=== PATIENT | female | born 1985 | race Caucasian/White ===

== ENCOUNTER 2021-05-17 00:39 | Emergency (ER) | payer BC, MEDICAID ==
[2021-05-17] MEDS ORDERED: Acetaminophen/HYDROcodone 325-5 MG Tab PO ONE (01:16)
--- NOTE | 2021-05-17 01:43 | EDM.PDOC ---
ED HPI GENERAL MEDICAL PROBLEM - General Chief Complaint: General Stated Complaint: BODY ACHE Time Seen by Provider: 05/17/21 00:59 Source of Information: Reports: Patient History Limitations: Reports: No Limitations - History of Present Illness INITIAL COMMENTS - FREE TEXT/NARRATIVE: The patient presents with body aches, chills and a low grade temp. The patient says this all started this morning with neck pain and it has gotten worse and her joints and muscles all hurt. She is crying when I went into the room. She has chills and she had a temp of 99.9. She has no medical problems. She did not get immunized for COVID 19. She does not smoke. She denies a cough, sore throat, ear pain, chest pain, shortness of breath, abdominal pain, nausea or vomiting. Onset: Gradual Duration: Day(s): Location: Reports: Generalized Quality: Reports: Ache Severity: Severe Improves with: Reports: None Worsens with: Reports: None Associated Symptoms: Denies: Cough Generalized Pain Score (Numeric/FACES): 10 - Related Data Allergies Allergy/AdvReac Type Severity Reaction Status Date / Time codeine Allergy Hives Verified 05/17/21 01:03 Home Meds: Home Meds . [No Known Home Meds] 05/17/21 [History] Past Medical History - Past Health History Medical/Surgical History: Denies Medical/Surgical History Social & Family History - Tobacco Use Tobacco Use Status *Q: Never Tobacco User ED ROS GENERAL - Review of Systems Review Of Systems: See Below Constitutional: Reports: Fever, Chills HEENT: Reports: No Symptoms Respiratory: Reports: No Symptoms Cardiovascular: Reports: No Symptoms Endocrine: Reports: No Symptoms GI/Abdominal: Reports: No Symptoms : Reports: No Symptoms Musculoskeletal: Reports: Muscle Pain Skin: Reports: No Symptoms Neurological: Reports: No Symptoms ED EXAM, GENERAL - Physical Exam Exam: See Below Exam Limited By: No Limitations General Appearance: Alert, No Apparent Distress Ears: Normal External Exam Nose: Normal Inspection Head: Atraumatic, Normocephalic Neck: Normal Inspection Respiratory/Chest: No Respiratory Distress, Lungs Clear, Normal Breath Sounds Cardiovascular: Regular Rate, Rhythm, No Edema, No Murmur GI/Abdominal: Soft, Non-Tender, No Organomegaly, No Mass Back Exam: Normal Inspection Course - Vital Signs Last Recorded V/S: Last Vital Signs Temp 99.9 F 05/17/21 00:59 Pulse 82 05/17/21 00:59 Resp 18 05/17/21 00:59 BP 142/98 H 05/17/21 00:59 Pulse Ox 100 05/17/21 00:59 - Orders/Labs/Meds Labs: Laboratory Tests 05/17/21 Range/Units 01:00 SARS-CoV-2 RNA (SHANIQUE) Positive H (NEGATIVE) Meds: Medications Discontinued Medications Generic Name Dose Route Start Last Admin Trade Name Jensen PRN Reason Stop Dose Admin Hydrocodone Bitart/Acetaminophen 2 tab 05/17/21 01:16 05/17/21 01:24 Acetaminophen/Hydrocodone 325-5 Mg Tab PO 05/17/21 01:17 2 tab ONETIME ONE Administration - Re-Assessments/Exams Free Text/Narrative Re-Assessment/Exam: 05/17/21 01:43 She is COVID positive. 05/17/21 01:51 She does want the monoclonal antibodies. We have no more in stock in the ER. I will write and order for an outpatient dose. Departure - Departure Time of Disposition: 02:00 Disposition: Home, Self-Care 01 Condition: Good Clinical Impression: COVID-19 - Discharge Information *PRESCRIPTION DRUG MONITORING PROGRAM REVIEWED*: Not Applicable *COPY OF PRESCRIPTION DRUG MONITORING REPORT IN PATIENT HOWARD: Not Applicable Referrals: PCP,None [Primary Care Provider] - Gabriella Rojas MD [Physician] - 1 Week Forms: ED Department Discharge, ED Return to Work/School Form Additional Instructions: Drink plenty of fluids. Take tylenol or motrin for pain. If that does not help, try the hydrocodone. Try to lay on your stomach when laying around. That will help oxygenate more lung tissue. I have put in an order for the monoclonal antibodies. Someone will call you with a times to come get them. Please return if you are worse. Sepsis Event Note (ED) - Evaluation Sepsis Screening Result: No Definite Risk - Focused Exam Vital Signs: Vital Signs Temp Pulse Resp BP Pulse Ox 05/17/21 00:59 99.9 F 82 18 142/98 H 100
== END 2021-05-17 02:26 | disposition home or self-care (01) ==
LOC: JD.ED 00:39
DX: U07.1 COVID-19 (principal); Z88.5 Allergy status to narcotic agent
CPT/HCPCS: 87804; 99283; A9270-GY; U0002

== ENCOUNTER 2021-12-07 11:01 | Emergency (ER) | payer BC ==
[2021-12-07] MEDS ORDERED: Sodium Chloride 0.9% 1,000 ML IV ONE (11:37)
== END 2021-12-07 13:30 | disposition home or self-care (01) ==
LOC: JD.ED 11:01
DX: N93.8 Other specified abnormal uterine and vaginal bleeding (principal); Z88.5 Allergy status to narcotic agent; Z91.040 Latex allergy status; Z68.30 Body mass index [BMI] 30.0-30.9, adult
CPT/HCPCS: 36415; 80053; 81025; 85007; 85027; 99284; J7030

== ENCOUNTER 2022-01-23 19:29 | Emergency (ER) | payer BC ==
[2022-01-23] MEDS ORDERED: Sodium Chloride 0.9% 1,000 ML IV ONE (20:03)
[2022-01-23] MEDS ORDERED: Sodium Chloride 0.9% 250 ML IV SCH (21:15)
== END 2022-01-24 03:08 | disposition home or self-care (01) ==
LOC: JD.ED 19:29
DX: N93.8 Other specified abnormal uterine and vaginal bleeding (principal); E66.9 Obesity, unspecified; Z88.5 Allergy status to narcotic agent; Z91.040 Latex allergy status; Z86.16 Personal history of COVID-19; Z68.1 Body mass index [BMI] 19.9 or less, adult
CPT/HCPCS: 36415; 36430; 84703; 85027; 86850; 86900; 86901; 86922; 96360; 96361; 99284; A9270; J7030; J7050; P9016

== ENCOUNTER 2022-01-26 04:29 | Inpatient (IN) | payer BC ==
[~2022-01-26 04:29] MED LIST: Lidocaine 1%/Sod Bicarbonate in NS 8.4% 1 ML Syringe IDERM PRN; Sodium Chloride 0.9% 10 ML Syringe FLUSH PRN
[2022-01-26] MEDS: Lactated Ringers 1,000 ML IV SCH ×4 (05:29→16:10)
[2022-01-26] MEDS ORDERED: Sodium Chloride 0.9% 1,000 ML IV SCH (05:30)
[2022-01-26] MEDS ORDERED: Sodium Chloride 0.9% 1,000 ML ONE (05:48)
[2022-01-26] MEDS: Sodium Chloride 0.9% 10 ML Syringe FLUSH SCH ×2 (06:08→10:26)
[2022-01-26] MEDS ORDERED: fentaNYL 250 MCG/5 ML SDV ONE (10:12)
[2022-01-26] MEDS ORDERED: Midazolam 1 MG/ML 2 ML SDV ONE (10:12)
[2022-01-26] MEDS ORDERED: Propofol 200 MG/20 ML SDV ONE (10:12)
[2022-01-26] MEDS ORDERED: Rocuronium 50 MG/5 ML Vial ONE ×2 (10:13→12:53)
[2022-01-26] MEDS ORDERED: Lidocaine 1% 5 ML VIAL ONE (10:13)
[2022-01-26] MEDS ORDERED: diphenhydrAMINE 50 MG/ML SDV ONE (10:13)
[2022-01-26] MEDS ORDERED: Ondansetron 4 MG/2 ML SDV ONE (10:13)
[2022-01-26] MEDS ORDERED: Dexamethasone 4 MG/ML 5 ML MDV ONE (10:13)
[2022-01-26] MEDS ORDERED: ceFAZolin 2 GM Vial ONE ×2 (10:13→11:52)
[2022-01-26] MEDS ORDERED: Calcium Chloride 10% 1 GM/10 ML Syringe ONE (11:57)
[2022-01-26] MEDS ORDERED: Lidocaine 1% with EPINEPHrine 1:100,000 20 ML MDV ONE (12:00)
[2022-01-26] MEDS ORDERED: Bupivacaine 0.5% 30 ML SDV ONE (12:00)
[2022-01-26] MEDS ORDERED: Sodium Chloride 0.9% 50 ML SDV ONE (12:00)
[2022-01-26] MEDS ORDERED: HYDROmorphone 0.5 MG/0.5 ML Syringe ONE ×3 (13:03→13:37)
[2022-01-26] MEDS ORDERED: ePHEDrine 50 MG/ML SDV ONE (13:11)
[2022-01-26] MEDS ORDERED: Sodium Chloride 0.9% 100 ML ONE (13:13)
[2022-01-26] MEDS ORDERED: Sugammadex Sodium 200 MG/2 ML VIAL ONE (13:43)
[2022-01-26] MEDS ORDERED: Ketorolac 30 MG/ML SDV ONE (14:00)
[2022-01-26] MEDS ORDERED: fentaNYL 100 MCG/2 ML SDV IVPUSH PRN (14:36)
[2022-01-26] MEDS ORDERED: Ondansetron 4 MG/2 ML SDV IVPUSH PRN (14:36)
[2022-01-26] MEDS ORDERED: HYDROmorphone 0.5 MG/0.5 ML Syringe IVPUSH PRN (14:36)
[2022-01-26] MEDS ORDERED: Magnesium Hydroxide 400 MG/5 ML Susp 30 ML Cup PO PRN (16:06)
[2022-01-26] MEDS ORDERED: Acetaminophen/oxyCODONE 325-5 MG Tab PO PRN ×2 (16:06)
[2022-01-26] MEDS ORDERED: HYDROmorphone 1 MG/ML Syringe IVPUSH PRN (16:54)
[2022-01-26] MEDS: Acetaminophen/HYDROcodone 325-5 MG Tab PO PRN ×2 (17:47→23:51)
[2022-01-26] MEDS: Sodium Chloride 0.9% 1,000 ML IV SCH (20:36)
[2022-01-26] MEDS: Docusate Sodium 100 MG Cap PO SCH (20:37)
[2022-01-27] MEDS: Sodium Chloride 0.9% 1,000 ML IV SCH (03:36)
[2022-01-27] MEDS: Ketorolac 30 MG/ML SDV IVPUSH PRN ×3 (03:38→15:43)
[2022-01-27] MEDS: Acetaminophen/HYDROcodone 325-5 MG Tab PO PRN ×4 (06:26→23:49)
[2022-01-27] MEDS ORDERED: Simethicone 80 MG Tab.Chew PO PRN (08:31)
[2022-01-27] MEDS: Docusate Sodium 100 MG Cap PO SCH ×2 (08:46→21:38)
[2022-01-27] MEDS ORDERED: Ibuprofen 600 MG Tab PO PRN (14:15)
[2022-01-28] MEDS: Acetaminophen/HYDROcodone 325-5 MG Tab PO PRN (08:16)
[2022-01-28] MEDS: Docusate Sodium 100 MG Cap PO SCH (08:16)
== END 2022-01-28 09:55 | disposition home or self-care (01) | DRG 519 ==
LOC: JD.SDS 04:29 → JD.OB 04:44 → JD.SDS 14:37 → JD.OB 14:37
PROVIDERS: ADMIT Obstetrics & Gynecology; ATTEND Obstetrics & Gynecology
PROC: 0UT90ZZ Resection of Uterus, Open Approach (ICD-10-PCS; principal; 2022-01-26)
PROC: 0UB70ZZ Excision of Bilateral Fallopian Tubes, Open Approach (ICD-10-PCS; principal; 2022-01-26)
PROC: 30233N1 Transfusion of Nonautologous Red Blood Cells into Peripheral Vein, Percutaneous Approach (ICD-10-PCS; principal; 2022-01-26)
DX: D25.9 Leiomyoma of uterus, unspecified (principal); N92.1 Excessive and frequent menstruation with irregular cycle; M19.90 Unspecified osteoarthritis, unspecified site; D64.9 Anemia, unspecified; F41.9 Anxiety disorder, unspecified; F32.A Depression, unspecified; J45.909 Unspecified asthma, uncomplicated; K59.09 Other constipation; E66.9 Obesity, unspecified; Z68.41 Body mass index [BMI] 40.0-44.9, adult; Z87.891 Personal history of nicotine dependence; Z88.5 Allergy status to narcotic agent; Z91.040 Latex allergy status
CPT/HCPCS: 00840; 36415; 36430; 80053; 81003; 81025; 83735; 85025; 85027; 85384; 85610; 85730; 86922; 99140; A9270-GY; J0690; J1100; J1170; J1200; J1885; J2250; J2405; J2704; J3010; J3490; J7030; J7120; P9016; P9045

== ENCOUNTER 2022-01-31 00:03 | Emergency (ER) | payer BC | END 2022-01-31 03:17 | disposition home or self-care (01) | LOC: JD.ED 00:03 | DX: I80.01 Phlebitis and thrombophlebitis of superficial vessels of right lower extremity (principal); E66.9 Obesity, unspecified; Z68.30 Body mass index [BMI] 30.0-30.9, adult; Z28.310 Unvaccinated for COVID-19; Z88.5 Allergy status to narcotic agent; Z91.040 Latex allergy status; Z87.891 Personal history of nicotine dependence | CPT/HCPCS: 36415; 85610; 85730; 93971-26-RT; 93971-RT; 99284-25 ==